=== PATIENT | male | born 1985 | race Caucasian/White ===

== ENCOUNTER 2017-10-18 04:37 | Emergency (ER) | payer MEDICARE, OTHER ==
[~2017-10-18] VITALS: Ht 182.9 cm; Wt 96.0 kg
[2017-10-18] MEDS ORDERED: KETOROLAC 30MG/ML VIAL IM ONE (06:45)
[2017-10-18] MEDS ORDERED: CEFTRIAXONE SODIUM 250 MG/VIAL IM ONE (06:45)
[2017-10-18] MEDS ORDERED: KETOROLAC 30MG/ML VIAL IV ONE (06:45)
[2017-10-18] MEDS ORDERED: LIDOCAINE HCL 1% 20ML VIAL (Pyxis) INJ INFIL ONE (06:45)
[2017-10-18 06:54] LABS: CLARITY URINE CLEAR (CLEAR); COLOR URINE YELLOW (YELLOW); GLUCOSE URINE NEGATIVE (NEGATIVE); KETONES URINE NEGATIVE (NEGATIVE); LEUKOCYTE ESTERASE URINE NEGATIVE (NEGATIVE); NITRITE URINE NEGATIVE (NEGATIVE); OCCULT BLOOD URINE NEGATIVE (NEGATIVE); PROTEIN URINE NEGATIVE (NEGATIVE); SPECIFIC GRAVITY URINE 1.021 (1.005-1.030); UROBILINOGEN URINE 0.2 E.U./dL (0.2-1.0)
[2017-10-18 07:37] VITALS: BP 132/88
[2017-10-21 08:18] LABS: CHLAMYDIA TRACHOMATIS NAA Negative (Negative); NEISSERIA GONORRHOEAE NAA Negative (Negative)
== END 2017-10-18 07:42 | disposition home or self-care (01) ==
LOC: ER 04:37
DX: M25.561 Pain in right knee (principal); Z98.890 Other specified postprocedural states
CPT/HCPCS: 73562; 81003; 87491; 87591; 96372; 99285; J0696; J1885; J3490

== ENCOUNTER 2018-01-13 11:36 | Emergency (ER) | payer OTHER ==
[~2018-01-13] VITALS: Ht 185.4 cm; Wt 89.4 kg
[2018-01-13] MEDS ORDERED: HYDROCODONE/ACETAMINOPHEN 5/325MG TABLET PO ONE ×2 (13:45→14:30)
[2018-01-13] MEDS ORDERED: TETANUS AND DIPHTHERIA TOX/PF 0.5ML SYR (ADULT) IM ONE (13:45)
[2018-01-13] MEDS ORDERED: TETANUS, DIPHTHERIA, PERTUSSIS VAC/PF 0.5ML (>7YR OLD) IM ONE (14:30)
[2018-01-13 15:20] VITALS: BP 150/64
== END 2018-01-13 15:46 | disposition home or self-care (01) ==
LOC: ER 12:53
DX: L03.031 Cellulitis of right toe (principal); L03.032 Cellulitis of left toe; R03.0 Elevated blood-pressure reading, without diagnosis of hypertension; Z23 Encounter for immunization; F12.90 Cannabis use, unspecified, uncomplicated
CPT/HCPCS: 73660; 82962; 90471; 90714; 90715; 99284